=== PATIENT | female | born 1985 | race Caucasian/White ===

== ENCOUNTER 2019-11-19 18:58 | Emergency (ER) | payer OTHER ==
[2019-11-19] MEDS ORDERED: Sodium Chloride 0.9% 2.5 ML Syringe FLUSH PRN (19:02)
[2019-11-19] MEDS ORDERED: Sodium Chloride 0.9% 10 ML Syringe FLUSH PRN (19:02)
[2019-11-19] MEDS ORDERED: Lidocaine 1% with EPINEPHrine 1:100,000 20 ML MDV INJECT ONE (19:03)
--- NOTE | 2019-11-19 19:07 | EDM.PDOC ---
ED HPI GENERAL MEDICAL PROBLEM <Elyse Hu - Last Filed: 11/19/19 20:40> head Pain Score (Numeric/FACES): 6 <Patrice Obando - Last Filed: 11/19/19 20:53> - General Chief Complaint: Trauma Stated Complaint: HEAD INJURY Time Seen by Provider: 11/19/19 19:02 - History of Present Illness INITIAL COMMENTS - FREE TEXT/NARRATIVE: History of present illness: [] Patient was hit in the head with a softball that was coming down her in the field. She was knocked down and knocked out. She was out briefly. She complains now only of pain above the left eyebrow with a laceration in that spot. She denies that she can be because her has had a vasectomy. He has lupus erythematosus but she does not have any other medical illness and is not on any anticoagulants. She is neurologically intact on arrival and has no other complaints Review of systems: As per history of present illness and below otherwise all systems reviewed and negative. Past medical history: As per history of present illness and as reviewed below otherwise noncontributory. Surgical history: As per history of present illness and as reviewed below otherwise noncontrib utory. Social history: No reported history of drug or alcohol abuse. Family history: As per history of present illness and as reviewed below otherwise noncontributory. Physical exam: Constitutional - well developed, well-nourished and in no acute distress HEENT -patient has a stellate laceration above the left brow that is 2-1/2 cm in length and 1 cm in width. The patient has numbness in that area but no crepitus and no obvious interruption of the galea or depression of the skull. Normocephalic, otherwise no evidence of trauma - external nose and mouth normal - no mass in neck and no JVD - mucosae moist. She is allergic to penicillin. She last ate 2 or more hours ago. Spine cleared by Nexus criteria EYES - full EOM, PERRL, no icterus - no evidence of inflammation, injection, or drainage. [place]ante intact by confrontation Respiratory - no respiratory distress, equal bilateral expansion, lungs clear to auscultation and no abnormal lung sounds Cardiovascular - Regular Rhythm with S1 and S2 appreciated and no murmur, gallop or rub. Peripheral pulses symmetrically normal in all four extremities GI - abdomen soft without distension or organomegaly - normal bowel sounds - no guard or rebound Musculoskeletal no gross deformity of long bones or joints - no tenderness, swelling or edema Neurologic - Alert and oriented times four - CN II-XII grossly intact - motor sensory and coordination symmetrically normal Psychiatric - appropriate mood and affect with normal thought content Hematologic - No petechiae or purpura - mucosa appropriate color and sclera not pale - normal nail bed color and refill Integument - no rash or evidence of trauma - normal turgor Diagnostics: [] Therapeutics: [] Impression: [] Plan: [] Definitive disposition and diagnosis as appropriate pending reevaluation and review of above. (Patrice Obando) - Related Data Allergies Allergy/AdvReac Type Severity Reaction Status Date / Time Penicillins Allergy Hives Verified 11/19/19 19:05 Home Meds: Home Meds Hydroxychloroquine [Plaquenil] 1 tab PO BID 11/19/19 [History] Review of Systems - Review of Systems Review Of Systems: Comprehensive ROS is negative, except as noted in HPI. <Patrice Obando - Last Filed: 11/19/19 20:53> ED EXAM, GENERAL - Physical Exam Exam: See Below <Patrice Obando - Last Filed: 11/19/19 20:53> - Physical Exam Free Text/Narrative:: My exam is in the HPI section (Patrice Obando) ED TRAUMA PROCEDURES - Laceration/Wound Repair Left Forehead Lac/Wound Length In cm: 4 Appearance: Stellate Distal NVT: Neuro & Vascular Intact Anesthetic Type: Local Local Anesthesia - Lidocaine (Xylocaine): 1% with EPI Local Anesthetic Volume: Other (10) Skin Prep: Chlorhexidine (Hibiciens) Exploration/Debridement/Repair: Wound Explored, In a Bloodless Field Closed With: Sutures, Steri-Strips (one) Suture Size: 5-0 # of Sutures: 7 (TRISTA Wong) Suture Type: Nylon, Interrupted Suture Size: 5-0 # of Sutures: 1 (TRISTA Wong) Repaired With: Vicryl (natan) Suture Size: 5-0 # of Sutures: 3 (TRISTA Wong) <Elyse Hu - Last Filed: 11/19/19 20:40> Course <Patrice Obando - Last Filed: 11/19/19 20:53> - Vital Signs Text/Narrative:: The patient has a CT that is unremarkable to my view except for the soft tissue deficit above the left brow. She remains alert and awake. (Patrice Obando) Last Recorded V/S: Last Vital Signs Temp 97.8 F 11/19/19 19:02 Pulse 66 11/19/19 19:02 Resp 18 11/19/19 19:02 BP 126/78 11/19/19 19:02 Pulse Ox 100 11/19/19 19:02 - Orders/Labs/Meds Orders: Active Orders 24 hr Category Date Time Status Vaccines to be Administered [RC] PER UNIT ROUTINE Care 11/19/19 19:21 Active Sodium Chloride 0.9% [Saline Flush] Med 11/19/19 19:02 Active 10 ml FLUSH ASDIRECTED PRN Sodium Chloride 0.9% [Saline Flush] Med 11/19/19 19:02 Active 2.5 ml FLUSH ASDIRECTED PRN Saline Lock Insert [OM.PC] Stat Oth 11/19/19 19:02 Ordered Medication Orders Sodium Chloride (Saline Flush) 10 ml FLUSH ASDIRECTED PRN PRN Reason: Keep Vein Open Sodium Chloride (Saline Flush) 2.5 ml FLUSH ASDIRECTED PRN PRN Reason: Keep Vein Open Labs: Laboratory Tests 11/19/19 11/19/19 Range/Units 19:43 19:43 WBC 5.00 (4.0-11.0) K/uL RBC 4.25 L (4.30-5.90) M/uL Hgb 11.8 L (12.0-16.0) g/dL Hct 36.4 (36.0-46.0) % MCV 85.6 (80.0-98.0) fL MCH 27.8 (27.0-32.0) pg MCHC 32.4 (31.0-37.0) g/dL RDW Std Deviation 43.8 (28.0-62.0) fl RDW Coeff of Chayito 14 (11.0-15.0) % Plt Count 227 (150-400) K/uL MPV 10.90 (7.40-12.00) fL Neut % (Auto) 48.2 (48.0-80.0) % Lymph % (Auto) 37.8 (16.0-40.0) % Mcdowell % (Auto) 10.6 (0.0-15.0) % Eos % (Auto) 3.2 (0.0-7.0) % Baso % (Auto) 0.2 (0.0-1.5) % Neut # (Auto) 2.4 (1.4-5.7) K/uL Lymph # (Auto) 1.9 (0.6-2.4) K/uL Mcdowell # (Auto) 0.5 (0.0-0.8) K/uL Eos # (Auto) 0.2 (0.0-0.7) K/uL Baso # (Auto) 0.0 (0.0-0.1) K/uL Nucleated RBC % 0.0 /100WBC Nucleated RBCs # 0 K/uL Sodium 137 (136-145) mmol/L Potassium 3.8 (3.5-5.1) mmol/L Chloride 102 (98-107) mmol/L Carbon Dioxide 25.1 (21.0-32.0) mmol/L BUN 10 (7.0-18.0) mg/dL Creatinine 1.0 (0.6-1.0) mg/dL Est Cr Clr Drug Dosing 78.54 mL/min Estimated GFR (MDRD) > 60.0 ml/min Glucose 120 H (74-106) mg/dL Calcium 8.6 (8.5-10.1) mg/dL Meds: Medications Generic Name Dose Route Start Last Admin Trade Name Freq PRN Reason Stop Dose Admin Sodium Chloride 10 ml 11/19/19 19:02 Saline Flush FLUSH ASDIRECTED PRN Keep Vein Open Sodium Chloride 2.5 ml 11/19/19 19:02 Saline Flush FLUSH ASDIRECTED PRN Keep Vein Open Discontinued Medications Generic Name Dose Route Start Last Admin Trade Name Freq PRN Reason Stop Dose Admin Bacitracin 1 dose 11/19/19 19:54 11/19/19 19:57 Bacitracin Oint 1 Gm TOP 11/19/19 19:55 1 dose ONETIME ONE Administration Diphtheria/Tetanus/Acell Pertussis 0.5 ml 11/19/19 19:21 11/19/19 19:25 Adacel IM 11/19/19 19:22 0.5 ml .ONCE ONE Administration Lidocaine/Epinephrine 20 ml 11/19/19 19:03 11/19/19 19:27 Xylocaine 1% With Epinephrine 1:100,000 INJECT 11/19/19 19:04 20 ml ONETIME ONE Administration Ondansetron HCl 4 mg 11/19/19 19:48 11/19/19 19:52 Zofran IVPUSH 11/19/19 19:49 4 mg ONETIME ONE Administration Ondansetron HCl Confirm 11/19/19 19:49 11/19/19 19:52 Zofran Administered 11/19/19 19:50 Not Given Dose 4 mg .ROUTE .STK-MED ONE Departure <HuElyse - Last Filed: 11/19/19 20:40> - Departure Time of Disposition: 20:53 Condition: Good <Patrice Obando - Last Filed: 11/19/19 20:53> - Departure Disposition: Home, Self-Care 01 Clinical Impression: Laceration of forehead, Concussion with brief (less than one hour) loss of consciousness, Contusion of face - Discharge Information Instructions: Head Injury, Adult, Laceration Care, Adult Referrals: Jean-Pierre Montague MD [Primary Care Provider] - Forms: ED Department Discharge Additional Instructions: The following information is given to patients seen in the emergency department who are being discharged to home. This information is to outline your options for follow-up care. We provide all patients seen in our emergency department with a follow-up referral. The need for follow-up, as well as the timing and circumstances, are variable depending upon the specifics of your emergency department visit. If you don't have a primary care physician on staff, we will provide you with a referral. We always advise you to contact your personal physician following an emergency department visit to inform them of the circumstance of the visit and for follow-up with them and/or the need for any referrals to a consulting specialist. The emergency department will also refer you to a specialist when appropriate. This referral assures that you have the opportunity for follow-up care with a specialist. All of these measure are taken in an effort to provide you with optimal care, which includes your follow-up. Under all circumstances we always encourage you to contact your private physician who remains a resource for coordinating your care. When calling for follow-up care, please make the office aware that this follow-up is from your recent emergency room visit. If for any reason you are refused follow-up, please contact the [facility] Emergency Department at and asked to speak to the emergency department charge nurse. Elfego Parks [facility] [address] [place] [address] [facility] [address] [place] [id number] Sutures should come out in 7 to 10 days. It is perfectly able to clean the area with peroxide dabbing on with a gauze bandage. You may keep the edges moist by breaking a [id number] vitamin E capsule and gently applying to the wound edges after you have dabbed with peroxide Sepsis Event Note (ED) - Focused Exam Vital Signs: Vital Signs Temp Pulse Resp BP Pulse Ox 11/19/19 19:02 97.8 F 66 18 126/78 100 - My Orders Last 24 Hours: My Active Orders 11/19/19 19:02 Sodium Chloride 0.9% [Saline Flush] 10 ml FLUSH ASDIRECTED PRN Sodium Chloride 0.9% [Saline Flush] 2.5 ml FLUSH ASDIRECTED PRN Saline Lock Insert [OM.PC] Stat 11/19/19 19:21 Vaccines to be Administered [RC] PER UNIT ROUTINE - Assessment/Plan Last 24 Hours: My Active Orders 11/19/19 19:02 Sodium Chloride 0.9% [Saline Flush] 10 ml FLUSH ASDIRECTED PRN Sodium Chloride 0.9% [Saline Flush] 2.5 ml FLUSH ASDIRECTED PRN Saline Lock Insert [OM.PC] Stat 11/19/19 19:21 Vaccines to be Administered [RC] PER UNIT ROUTINE
--- NOTE | 2019-11-19 19:20 | CT ---
Head CT Technique: Multiple axial sections through the brain were obtained. Intravenous contrast was not utilized. Comparison: No prior intracranial imaging is available. Findings: Ventricles along with basal cisterns and sulci over the convexities are within normal limits for the patient's age. No abnormal parenchymal densities are seen. No evidence of intracranial hemorrhage. No midline shift or mass-effect is seen. Bone window settings were reviewed. Visualized mastoid sinuses and visualized paranasal sinuses show nothing acute. Soft tissue injury is seen within the left frontal scalp. No acute calvarial abnormality is appreciated. Impression: 1. Scalp injury within the left frontal scalp. 2. No acute intracranial abnormality is appreciated. Diagnostic code #2 This report was dictated in MDT
[2019-11-19] MEDS ORDERED: Diphtheria,Pertussis(Acell),Tetanus Vaccine 0.5 ML Syringe IM ONE (19:21)
[2019-11-19] MEDS ORDERED: Ondansetron 4 MG/2 ML SDV IVPUSH ONE (19:48)
[2019-11-19] MEDS ORDERED: Ondansetron 4 MG/2 ML SDV ONE (19:49)
[2019-11-19] MEDS ORDERED: Bacitracin Oint 1 GM U/D Packet TOP ONE (19:54)
[2019-11-19 20:10] LABS: BLOOD UREA NITROGEN,BUN 10 mg/dL (7.0-18.0); CARBON DIOXIDE,CO2 25.1 mmol/L (21.0-32.0); CHLORIDE,CL 102 mmol/L (98-107); GLUCOSE RANDOM 120 mg/dL (74-106); POTASSIUM,K 3.8 mmol/L (3.5-5.1); SODIUM,NA 137 mmol/L (136-145)
== END 2019-11-19 21:00 | disposition home or self-care (01) ==
LOC: MW.ED 18:58
DX: S06.0X9A Concussion with loss of consciousness of unspecified duration, initial encounter (principal); S01.81XA Laceration without foreign body of other part of head, initial encounter; Z23 Encounter for immunization; Z88.0 Allergy status to penicillin; W21.07XA Struck by softball, initial encounter; Y93.64 Activity, baseball
CPT/HCPCS: 12013; 36415; 70450; 80048; 85025; 90471; 90715; 96374; 99285; J2405